=== PATIENT | male | born 1985 | race African-American/Black ===

== ENCOUNTER 2020-11-01 09:59 | Emergency (ER) | payer OTHER ==
[~2020-11-01] VITALS: Ht 182.9 cm; Wt 127.3 kg
[~2020-11-01 09:59] MED LIST: NO MEDS
[2020-11-01 10:22] VITALS: BP 152/87
== END 2020-11-01 10:59 | disposition home or self-care (01) ==
LOC: EMS 09:59
DX: S51.852A Open bite of left forearm, initial encounter (principal); J45.909 Unspecified asthma, uncomplicated; W50.3XXA Accidental bite by another person, initial encounter; Y93.89 Activity, other specified; Y92.89 Other specified places as the place of occurrence of the external cause; Y99.8 Other external cause status
CPT/HCPCS: 99283; Z7502